=== PATIENT | female | born 1980 | race Caucasian/White ===

== ENCOUNTER 2018-07-07 09:27 | Observation (INO) | payer OTHER ==
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
[2018-07-07 09:37] VITALS: BP 144/101
[2018-07-07 11:21] LABS: PLATELET COUNT 211 10^3/uL (150-400)
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
== END 2018-07-07 12:01 | disposition home or self-care (01) ==
LOC: FLD 10:42
PROVIDERS: ADMIT Obstetrics & Gynecology; ATTEND Obstetrics & Gynecology
DX: Z04.1 Encounter for examination and observation following transport accident (principal); Z87.59 Personal history of other complications of pregnancy, childbirth and the puerperium; Z3A.21 21 weeks gestation of pregnancy
CPT/HCPCS: 99283; G0378